=== PATIENT | male | born 1950 | race Caucasian/White ===

== ENCOUNTER 2016-07-30 11:29 | Emergency (ER) | payer OTHER ==
--- NOTE | 2016-07-30 13:02 | DIAGNOSTIC IMAGING REPORT ---
PROCEDURE: XR CHEST 2 VIEW INDICATION: SHORTNESS OF BREATH TECHNIQUE: PA and lateral views. COMPARISON: None available FINDINGS: Right paratracheal and hilar mass. There is collapse of the right lower lobe. There is a right pleural effusion. The heart size is normal. The left lung is clear. IMPRESSION: 1. Right paratracheal and hilar mass with pleural effusion and right lower lobe collapse.
--- NOTE | 2016-07-30 14:31 | ED ORDER SUMMARY ---
..... Patient: GUERDA GONZALEZ OrderSheet [facility] VisitID: [id number] [address] [place] [address] 66y, M Registration Date/Time: 07/30/2016 ORDER SHEET Weight: 54.8 kg (stated) Allergies: Antidepresants GENERAL ORDERS: Chest 2V Urgent (11:07/30/2016 PHutchinson DO) (Ack 11:48 RKaruga) (16:24 MCampbell) Torch Shearer (Continuous) (:07/30/2016 PHutchinson DO) (11:51 LWhalen R.N.) UA-Culture if indicated Urgent (:07/30/2016 PHutchinson DO) (Ack 11:48 RKaruga) (15:14 LWhalen R.N.) Cardiac Panel Stat (:07/30/2016 PHutchinson DO) (Ack 11:48 RKaruga) (12:40 LSullivan R.N.) BNP Urgent (:07/30/2016 PHutchinson DO) (Ack 11:48 RKaruga) (12:40 LSullivan R.N.) D-Dimer Urgent (:07/30/2016 PHutchinson DO) (Ack 11:48 RKaruga) (12:40 LSullivan R.N.) Amylase Urgent (11:07/30/2016 PHutchinson DO) (Ack 11:48 RKaruga) (12:40 LSullivan R.N.) Lipase Urgent (11:07/30/2016 PHutchinson DO) (Ack 11:48 RKaruga) (12:40 LSullivan R.N.) TSH Urgent (:07/30/2016 PHutchinson DO) (Ack 11:48 RKaruga) (12:40 LSullivan R.N.) Urine Drug Screen Urgent (:07/30/2016 PHutchinson DO) (Ack 11:48 RKaruga) (15:14 LWhalen R.N.) Pulse oximeter (:07/30/2016 PHutchinson DO) (11:51 LWhalen R.N.) EKG - ER Stat (11:43 07/30/2016 [facility] DO) (11:51 LWhalen R.N.) Vitals (11:43 07/30/2016 [facility] DO) (11:51 LWhalen R.N.) [facility]) (11:56 07/30/2016 [facility]) ([facility] 12[facility] (19:35 IJurca ER Tech1) MEDICATION ORDERS: Aspirin PO 325 mg (NOW) (11:43 07/30/2016 [facility] DO) (11:53 LWhalen R.N.) Lovenox Subcut 60 mg (HIGH ALERT MEDICATION, NOW) (14:50 07/30/2016 [facility]) (15:13 LWhalen R.N.) IV FLUIDS: IV NS : initial bolus 250 mL (1000 mL/hr), then 250 mL/hr for X3 (NOW) (11:43 07/30/2016 [facility]) (11:55 LWhalen R.N.) Ativan IV 0.5 mg (NOW) (15:05 07/30/2016 [facility]) (15:13 LWhalen R.N.) Ceftriaxone IV 1 gm/50mL (NOW) (15:48 07/30/2016 [facility]) (16:12 LWhalen R.N.) IV NS with Normal Saline 1 Liter: initial bolus 1000 mL (1000 mL/hr), then 1000 mL/hr for X1 (NOW) (15:50 07/30/2016 [facility]) (Ack 16:13 LWhalen R.N.) (20:49 DDavis R.N.) ORDER SHEET NOTES: [Electronically signed by Barry Bardales R.N. (21:08 07/30/2016)] [Electronically signed by Fredi Brandt DO (13:12 07/31/2016)] [Electronically locked/signed by Barry Bardales R.N. (21:08 07/30/2016)]
--- NOTE | 2016-07-30 14:31 | ED NURSING NOTES ---
Clinical Report - Nurses [facility] [address] [place] [address] 07/30/2016 11:32 [id number] Triage time 11:37 Jul 30 2016. Acuity: LEVEL 3. Chief Complaint: CHEST PAIN. HAIDER COMA SCORE: [place] Coma Scale: 15- eyes open spontaneously (4); best verbal response- oriented x 4 (5); best motor response- obeys commands (6). --11:47 Marcos Main R.N. 11:37 07/30/16. BP: 124/80. HR: 125. RR: 18. O2 saturation: 100%. Temp: 98.1 F. Pain level now 5/10. --11:47 Marcos Main R.N. Weight: 54.8 kg stated. Height/Length: 66 inches Per Patient. BMI: 19.5. --11:44 Marcos Main R.N. Medications Gabapentin Oral. --11:40 Marcos Main R.N. Asprin. --11:55 Marcos Main R.N. Motrin Oral. --11:55 Marcos Main R.N. Tylenol PM Extra Strength Oral. --11:56 Marcos Main R.N. Allergies Antidepresants . --11:40 Marcos Main R.N. History Arrived by private vehicle. Historian: patient. Primary physician (Dr.John Allred [place]). ( Patient states has been having SOB and chest pain for a month. Has lost 40lbs in the past 7 months. Having abd pain.). He has had difficulty breathing and a cough. No sweating episodes or fever. PAST MEDICAL HX: Immunizations: up-to-date. SOCIAL HX: Former smoker. Occasional alcohol use. No drug use. ABUSE ASSESSMENT: Abuse history: reports abuse. Abuse assessment: (yes) The patient was asked "Do you feel safe in your home?". SELF HARM ASSESSMENT: A self harm assessment was performed. The patient answered "yes" to the question "Have you recently felt down, depressed, or hopeless?" and "no" to the question "Do you have thoughts of harming or killing yourself?". FALL RISK ASSESSMENT: Fall risk assessment completed. No fall risk identified. NUTRITIONAL RISK ASSESSMENT: The nutritional risk assessment revealed no deficiencies. FUNCTIONAL ASSESSMENT: Functional assessment: no impairments noted. LEARNING NEEDS ASSESSMENT: The learning needs assessment revealed no barriers. SKIN INTEGRITY ASSESSMENT: Skin integrity risk assessment completed. No skin integrity risk identified. --11:47 Marcos Main R.N. PROBLEMS: Lung collapse . Emphysema. Osteoporosis. Fibromyalgia. --11:42 Marcos Main R.N. Interventions ID and allergy band on patient. --11:47 Marcos Main R.N. PHYSICAL ASSESSMENT Ambulatory to room. GENERAL / NEURO / PSYCH: Alert. Oriented X 4. Appears in no acute distress. HEENT: Mucous membranes are pink. RESPIRATORY: Respirations not labored. Chest nontender. Breath sounds within normal limits. GI / : The patient has had nausea. ( States last BM was three weeks ago.). EXTREMITIES: No lower extremity edema. SKIN: Skin is warm and dry. Normal skin turgor. Skin is non-tender. --11:49 Marcos Main R.N. ( Breath sounds absent or severely diminished on right lung, clear on left). --19:33 Barry Bardales R.N. ( patient calm and conversant). --19:34 Barry Bardales R.N. NURSING PROGRESS NOTES The initial plan of care for this patient includes an assessment with efforts to address patient positioning and appropriate ambient lighting; impairment of the cardiovascular and gastrointestinal system. threat monitoring analyst, pulse oximeter and NIBP monitor placed on patient. Patient gowned. Head of bed elevated (90). Reassurance given. Call light placed in reach. Side rails up x 1. Bed placed in lowest position. Brakes of bed on. --11:50 Marcos Main R.N. 11:50 07/30/2016 Site #1 started via IV in the left forearm with an 20g angiocath, with aseptic technique and good blood return; one attempt. Saline lock flushed with 10 mL saline. --11:50 Marcos Main R.N. 11:53 07/30/2016 Aspirin PO Capsules 325 mg given. Allergies verified and confirmed 5 rights. --11:53 Marcos Main R.N. 11:55 07/30/2016 Started bag #1 1000 mL IV Fluids IV NS (Saline); at 1000 mL/hr over 1 hour(s) via site #1 via dial-a-flow. Allergies verified and confirmed 5 rights. IV patency established. IV site checked: no pain, redness, or swelling. IV flushed thoroughly pre- and post-medication administration. --11:55 Marcos Main R.N. 12:15 07/30/2016 IV Fluids IV NS via IV site #1 Rate Changed: bag #1 decreased to 250 mL/hr via IV pump. IV patency established. IV site checked: no pain, redness, or swelling. IV flushed thoroughly. Confirmed 5 Rights. --12:43 Alla Walden R.N. 12:27 07/30/2016 Site #1 removed. Catheter intact. Bandage applied (IV site pulled out during CT.). --12:42 Alla Walden R.N. 12:42 07/30/2016 Site #1 relocated to the right antecubital space with an 20g angiocath, with aseptic technique and good blood return; one attempt. Blood drawn: rainbow set. Labeled in the presence of the patient and sent to the lab. --12:42 Alla Walden R.N. correction to prior entry - 12:27 Pt was in x ray, not CT. --12:44 Alla Walden R.N. ( [facility]. Multiple messages left for the [place] clinic [facility] to make a clinic appointment but Messages have not been replied. [facility] reported that Mr. Gonzalez has a product communications manager Ms. Adriana Hernandez but the voicemail message on her phone stated she would not be back until August 03. ER doctor notified.). --13:02 Nel Velasquez EKG time: (11:59 AM). EKG was performed by a tech and shown to the ED physician. --13:16 Rodrick Calderon 14:58 07/30/2016 Lovenox (Enoxaparin Sodium) Subcutaneous 60 mg given. Given in the left abdomen. Allergies verified and confirmed 5 rights. --15:13 Marcos Main R.N. 15:13 07/30/2016 Ativan (LORazepam) IVP 0.5 mg given over 1 minute(s) via site #1. Allergies verified, confirmed 5 rights and sedative warning given to the patient. IV patency established. IV site checked: no pain, redness, or swelling. IV flushed thoroughly pre- and post-medication administration. --15:13 Marcos Main R.N. 15:14 07/30/2016 Started bag #1 1000 mL IV Fluids IV NS (Saline); at 250 mL/hr over 4 hour(s) via site #1 via IV pump. Allergies verified and confirmed 5 rights. IV patency established. IV site checked: no pain, redness, or swelling. IV flushed thoroughly pre- and post-medication administration. --15:14 Marcos Main R.N. 15:14 07/30/2016 IV Fluids IV NS Discontinued: bag #2 infused. Total amount infused: 900 mL. IV patency established. IV site checked: no pain, redness, or swelling. IV flushed thoroughly. --15:14 Marcos Main R.N. 14:45 07/30/16. BP: 112/80. HR: 127. RR: 28. O2 saturation: 98% on room air. 14:07/30/16. BP: 109/71. HR: 120. RR: 24. O2 saturation: 98% on room air. 13:45 07/30/16. BP: 99/79. HR: 118. RR: 21. O2 saturation: 98% on room air. 13:07/30/16. BP: 101/70. HR: 122. RR: 24. O2 saturation: 98% on room air. 12:45 07/30/16. BP: 116/69. HR: 124. RR: 25. O2 saturation: 98%. 12:00 07/30/16. BP: 114/72. HR: 121. RR: 20. O2 saturation: 99%. 11:45 07/30/16. BP: 112/78. HR: 127. RR: 21. O2 saturation: 99% on room air. --15:23 Marcos Main R.N. 16:12 07/30/2016 Started 1 gm of Ceftriaxone IVPB in bag #1 100 mL; at 150 mL/hr over 1 hour(s) via site #1 via IV pump. Allergies verified and confirmed 5 rights. IV patency established. IV site checked: no pain, redness, or swelling. IV flushed thoroughly pre- and post-medication administration. --16:12 Marcos Main R.N. 16:12 07/30/2016 Ativan (LORazepam) IVP 0.5 mg given over 2 minute(s) via site #1. Allergies verified, confirmed 5 rights and sedative warning given to the patient. IV patency established. IV site checked: no pain, redness, or swelling. IV flushed thoroughly pre- and post-medication administration. --16:12 Marcos Main R.N. 16:13 07/30/2016 IV Fluids IV NS via IV site #1 Rate Changed: bag #3 increased to 1000 mL/hr via IV pump. IV patency established. IV site checked: no pain, redness, or swelling. IV flushed thoroughly. Confirmed 5 Rights. --16:13 Marcos Main R.N. ( Report given to Dion LUNA charge at the [place] for expected transport at 1800.). --17:18 Marcos Main R.N. 18:45 07/30/16. BP: 94/78. HR: 98. RR: 24. O2 saturation: 98%. 17:45 07/30/16. BP: 97/65. HR: 118. RR: 22. O2 saturation: 99%. Temp: 98.4 F. 16:45 07/30/16. BP: 109/69. HR: 116. RR: 23. O2 saturation: 98%. 15:45 07/30/16. BP: 84/71. HR: 119. RR: 21. O2 saturation: 97%. 14:45 07/30/16. BP: 112/80. HR: 127. RR: 28. O2 saturation: 98% on room air. --18:55 Marcos Main R.N. ( Report received from Marcos Ford RN). --19:18 Barry Bardales R.N. threat monitoring analyst and pulse oximeter placed on patient. ( SInus Tach on monitor. alert and oriented. conversant,). --19:33 Barry Bardales R.N. 20:49 07/30/2016 Started bag #1 1000 mL IV Fluids IV NS (Saline); at 1000 mL/hr over 1 hour(s) via site #1. Allergies verified and confirmed 5 rights. IV patency established. IV site checked: no pain, redness, or swelling. IV flushed thoroughly pre- and post-medication administration. --20:49 Barry Bardales R.N. 20:59 07/30/2016 Site #[address] upon transfer; patent, no pain and no signs of infection or infiltration. Good blood return present. Flushed with saline; flushes easily. --20:59 Barry Bardales R.N. 20:59 07/30/2016 IV Fluids IV NS Continued: upon transfer at the rate of 1000 mL/hr. 900 mL remaining. IV patency established. IV site checked: no pain, redness, or swelling. IV flushed thoroughly. --21:00 Barry Bardales R.N. DISPOSITION / DISCHARGE Departure time: 2058. Learning barriers present. Discharge instructions provided and reviewed with the patient. Treatments reviewed. Patient verbalized understanding. Transferred. Summary of care provided to transport team, EMS and transfer facility ([facility] 2058). Transported via ambulance by nurse, EMS and transport team with monitor, IV and emergency medications. Report was given to a nurse in person. Report included patient's care, treatment, medications, reviewed medication reconcilliation, and condition (including any recent changes or anticipated changes). All questions were answered. Report was acknowledged and care was transferred. ( Report given to Navneet Aburto RN with [facility] transport). --21:06 aBrry Bardales R.N. 20:59 07/30/16. RR: 24. Additional comments: See recorded vitals for d/c vitals. --21:07 Barry Bardales R.N. Locked/Released at 07/30/2016 21:08 by Barry Bardales R.N.
--- NOTE | 2016-07-30 14:31 | ED NURSING NOTES ---
Clinical Report - Nurses [facility] [address] [place] [address] 07/30/2016 11:32 [id number] Triage time 11:37 Jul 30 2016. Acuity: LEVEL 3. Chief Complaint: CHEST PAIN. HAIDER COMA SCORE: [place] Coma Scale: 15- eyes open spontaneously (4); best verbal response- oriented x 4 (5); best motor response- obeys commands (6). --11:47 Marcos Main R.N. 11:37 07/30/16. BP: 124/80. HR: 125. RR: 18. O2 saturation: 100%. Temp: 98.1 F. Pain level now 5/10. --11:47 Marcos Main R.N. Weight: 54.8 kg stated. Height/Length: 66 inches Per Patient. BMI: 19.5. --11:44 Marcos Main R.N. Medications Gabapentin Oral. --11:40 Marcos Main R.N. Asprin. --11:55 Marcos Main R.N. Motrin Oral. --11:55 Macros Main R.N. Tylenol PM Extra Strength Oral. --11:56 Marcos Main R.N. Allergies Antidepresants . --11:40 Marcos Main R.N. History Arrived by private vehicle. Historian: patient. Primary physician (Dr.John Allred [place]). ( Patient states has been having SOB and chest pain for a month. Has lost 40lbs in the past 7 months. Having abd pain.). He has had difficulty breathing and a cough. No sweating episodes or fever. PAST MEDICAL HX: Immunizations: up-to-date. SOCIAL HX: Former smoker. Occasional alcohol use. No drug use. ABUSE ASSESSMENT: Abuse history: reports abuse. Abuse assessment: (yes) The patient was asked "Do you feel safe in your home?". SELF HARM ASSESSMENT: A self harm assessment was performed. The patient answered "yes" to the question "Have you recently felt down, depressed, or hopeless?" and "no" to the question "Do you have thoughts of harming or killing yourself?". FALL RISK ASSESSMENT: Fall risk assessment completed. No fall risk identified. NUTRITIONAL RISK ASSESSMENT: The nutritional risk assessment revealed no deficiencies. FUNCTIONAL ASSESSMENT: Functional assessment: no impairments noted. LEARNING NEEDS ASSESSMENT: The learning needs assessment revealed no barriers. SKIN INTEGRITY ASSESSMENT: Skin integrity risk assessment completed. No skin integrity risk identified. --11:47 Marcos Main R.N. PROBLEMS: Lung collapse . Emphysema. Osteoporosis. Fibromyalgia. --11:42 Marcos Main R.N. Interventions ID and allergy band on patient. --11:47 Marcos Main R.N. PHYSICAL ASSESSMENT Ambulatory to room. GENERAL / NEURO / PSYCH: Alert. Oriented X 4. Appears in no acute distress. HEENT: Mucous membranes are pink. RESPIRATORY: Respirations not labored. Chest nontender. Breath sounds within normal limits. GI / : The patient has had nausea. ( States last BM was three weeks ago.). EXTREMITIES: No lower extremity edema. SKIN: Skin is warm and dry. Normal skin turgor. Skin is non-tender. --11:49 Marcos Main R.N. ( Breath sounds absent or severely diminished on right lung, clear on left). --19:33 Barry Bardales R.N. ( patient calm and conversant). --19:34 Barry Bardales R.N. NURSING PROGRESS NOTES The initial plan of care for this patient includes an assessment with efforts to address patient positioning and appropriate ambient lighting; impairment of the cardiovascular and gastrointestinal system. quality assurance monitor final, pulse oximeter and NIBP monitor placed on patient. Patient gowned. Head of bed elevated (90). Reassurance given. Call light placed in reach. Side rails up x 1. Bed placed in lowest position. Brakes of bed on. --11:50 Marcos Main R.N. 11:50 07/30/2016 Site #1 started via IV in the left forearm with an 20g angiocath, with aseptic technique and good blood return; one attempt. Saline lock flushed with 10 mL saline. --11:50 Marcos Main R.N. 11:53 07/30/2016 Aspirin PO Capsules 325 mg given. Allergies verified and confirmed 5 rights. --11:53 Marcos Main R.N. 11:55 07/30/2016 Started bag #1 1000 mL IV Fluids IV NS (Saline); at 1000 mL/hr over 1 hour(s) via site #1 via dial-a-flow. Allergies verified and confirmed 5 rights. IV patency established. IV site checked: no pain, redness, or swelling. IV flushed thoroughly pre- and post-medication administration. --11:55 Marcos Main R.N. 12:15 07/30/2016 IV Fluids IV NS via IV site #1 Rate Changed: bag #1 decreased to 250 mL/hr via IV pump. IV patency established. IV site checked: no pain, redness, or swelling. IV flushed thoroughly. Confirmed 5 Rights. --12:43 Alla Walden R.N. 12:27 07/30/2016 Site #1 removed. Catheter intact. Bandage applied (IV site pulled out during CT.). --12:42 Alla Walden R.N. 12:42 07/30/2016 Site #1 relocated to the right antecubital space with an 20g angiocath, with aseptic technique and good blood return; one attempt. Blood drawn: rainbow set. Labeled in the presence of the patient and sent to the lab. --12:42 Alla Walden R.N. correction to prior entry - 12:27 Pt was in x ray, not CT. --12:44 Alla Walden R.N. ( [facility]. Multiple messages left for the [place] clinic [facility] to make a clinic appointment but Messages have not been replied. [facility] reported that Mr. Gonzalez has a national facilities manager Ms. Adriana Hernandez but the voicemail message on her phone stated she would not be back until August 03. ER doctor notified.). --13:02 Nel Velasquez EKG time: (11:59 AM). EKG was performed by a tech and shown to the ED physician. --13:16 Rodrick Calderon 14:58 07/30/2016 Lovenox (Enoxaparin Sodium) Subcutaneous 60 mg given. Given in the left abdomen. Allergies verified and confirmed 5 rights. --15:13 Marcos Main R.N. 15:13 07/30/2016 Ativan (LORazepam) IVP 0.5 mg given over 1 minute(s) via site #1. Allergies verified, confirmed 5 rights and sedative warning given to the patient. IV patency established. IV site checked: no pain, redness, or swelling. IV flushed thoroughly pre- and post-medication administration. --15:13 Marcos Main R.N. 15:14 07/30/2016 Started bag #1 1000 mL IV Fluids IV NS (Saline); at 250 mL/hr over 4 hour(s) via site #1 via IV pump. Allergies verified and confirmed 5 rights. IV patency established. IV site checked: no pain, redness, or swelling. IV flushed thoroughly pre- and post-medication administration. --15:14 Marcos Main R.N. 15:14 07/30/2016 IV Fluids IV NS Discontinued: bag #2 infused. Total amount infused: 900 mL. IV patency established. IV site checked: no pain, redness, or swelling. IV flushed thoroughly. --15:14 Marcos Main R.N. 14:45 07/30/16. BP: 112/80. HR: 127. RR: 28. O2 saturation: 98% on room air. 14:07/30/16. BP: 109/71. HR: 120. RR: 24. O2 saturation: 98% on room air. 13:45 07/30/16. BP: 99/79. HR: 118. RR: 21. O2 saturation: 98% on room air. 13:07/30/16. BP: 101/70. HR: 122. RR: 24. O2 saturation: 98% on room air. 12:45 07/30/16. BP: 116/69. HR: 124. RR: 25. O2 saturation: 98%. 12:00 07/30/16. BP: 114/72. HR: 121. RR: 20. O2 saturation: 99%. 11:45 07/30/16. BP: 112/78. HR: 127. RR: 21. O2 saturation: 99% on room air. --15:23 Marcos Main R.N. 16:12 07/30/2016 Started 1 gm of Ceftriaxone IVPB in bag #1 100 mL; at 150 mL/hr over 1 hour(s) via site #1 via IV pump. Allergies verified and confirmed 5 rights. IV patency established. IV site checked: no pain, redness, or swelling. IV flushed thoroughly pre- and post-medication administration. --16:12 Marcos Main R.N. 16:12 07/30/2016 Ativan (LORazepam) IVP 0.5 mg given over 2 minute(s) via site #1. Allergies verified, confirmed 5 rights and sedative warning given to the patient. IV patency established. IV site checked: no pain, redness, or swelling. IV flushed thoroughly pre- and post-medication administration. --16:12 Marcos Main R.N. 16:13 07/30/2016 IV Fluids IV NS via IV site #1 Rate Changed: bag #3 increased to 1000 mL/hr via IV pump. IV patency established. IV site checked: no pain, redness, or swelling. IV flushed thoroughly. Confirmed 5 Rights. --16:13 Marcos Main R.N. ( Report given to Dion LUNA charge at the [place] for expected transport at 1800.). --17:18 Marcos Main R.N. 18:45 07/30/16. BP: 94/78. HR: 98. RR: 24. O2 saturation: 98%. 17:45 07/30/16. BP: 97/65. HR: 118. RR: 22. O2 saturation: 99%. Temp: 98.4 F. 16:45 07/30/16. BP: 109/69. HR: 116. RR: 23. O2 saturation: 98%. 15:45 07/30/16. BP: 84/71. HR: 119. RR: 21. O2 saturation: 97%. 14:45 07/30/16. BP: 112/80. HR: 127. RR: 28. O2 saturation: 98% on room air. --18:55 Marcos Main R.N. ( Report received from Marcos Ford RN). --19:18 Barry Bardales R.N. quality assurance monitor final and pulse oximeter placed on patient. ( SInus Tach on monitor. alert and oriented. conversant,). --19:33 Barry Bardales R.N. 20:49 07/30/2016 Started bag #1 1000 mL IV Fluids IV NS (Saline); at 1000 mL/hr over 1 hour(s) via site #1. Allergies verified and confirmed 5 rights. IV patency established. IV site checked: no pain, redness, or swelling. IV flushed thoroughly pre- and post-medication administration. --20:49 Barry Bardales R.N. 20:59 07/30/2016 Site #[address] upon transfer; patent, no pain and no signs of infection or infiltration. Good blood return present. Flushed with saline; flushes easily. --20:59 Barry Bardales R.N. 20:59 07/30/2016 IV Fluids IV NS Continued: upon transfer at the rate of 1000 mL/hr. 900 mL remaining. IV patency established. IV site checked: no pain, redness, or swelling. IV flushed thoroughly. --21:00 Barry Bardales R.N. DISPOSITION / DISCHARGE Departure time: 2058. Learning barriers present. Discharge instructions provided and reviewed with the patient. Treatments reviewed. Patient verbalized understanding. Transferred. Summary of care provided to transport team, EMS and transfer facility ([facility] 2058). Transported via ambulance by nurse, EMS and transport team with monitor, IV and emergency medications. Report was given to a nurse in person. Report included patient's care, treatment, medications, reviewed medication reconcilliation, and condition (including any recent changes or anticipated changes). All questions were answered. Report was acknowledged and care was transferred. ( Report given to Navneet Aburto RN with [facility] transport). --21:06 Barry Bardales R.N. 20:59 07/30/16. RR: 24. Additional comments: See recorded vitals for d/c vitals. --21:07 Barry Bardales R.N. Locked/Released at 07/30/2016 21:08 by Barry Bardales R.N.
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
--- NOTE | 2016-07-30 14:31 | ED ORDER SUMMARY ---
..... Patient: GUERDA GONZALEZ OrderSheet [facility] VisitID: [id number] [address] [place] [address] 66y, M Registration Date/Time: 07/30/2016 ORDER SHEET Weight: 54.8 kg (stated) Allergies: Antidepresants GENERAL ORDERS: Chest 2V Urgent (11:07/30/2016 PHutchinson DO) (Ack 11:48 RKaruga) (16:24 MCampbell) Unleavened Dough Mixer (Continuous) (:07/30/2016 PHutchinson DO) (11:51 LWhalen R.N.) UA-Culture if indicated Urgent (:07/30/2016 PHutchinson DO) (Ack 11:48 RKaruga) (15:14 LWhalen R.N.) Cardiac Panel Stat (:07/30/2016 PHutchinson DO) (Ack 11:48 RKaruga) (12:40 LSullivan R.N.) BNP Urgent (:07/30/2016 PHutchinson DO) (Ack 11:48 RKaruga) (12:40 LSullivan R.N.) D-Dimer Urgent (:07/30/2016 PHutchinson DO) (Ack 11:48 RKaruga) (12:40 LSullivan R.N.) Amylase Urgent (11:07/30/2016 PHutchinson DO) (Ack 11:48 RKaruga) (12:40 LSullivan R.N.) Lipase Urgent (11:07/30/2016 PHutchinson DO) (Ack 11:48 RKaruga) (12:40 LSullivan R.N.) TSH Urgent (:07/30/2016 PHutchinson DO) (Ack 11:48 RKaruga) (12:40 LSullivan R.N.) Urine Drug Screen Urgent (:07/30/2016 PHutchinson DO) (Ack 11:48 RKaruga) (15:14 LWhalen R.N.) Pulse oximeter (:07/30/2016 PHutchinson DO) (11:51 LWhalen R.N.) EKG - ER Stat (11:43 07/30/2016 [facility] DO) (11:51 LWhalen R.N.) Vitals (11:43 07/30/2016 [facility] DO) (11:51 LWhalen R.N.) [facility] - and [facility]/u appotint[facility]) (11:56 07/30/2016 [facility]) [facility] 12[facility] (19:35 IJurca ER Tech1) MEDICATION ORDERS: Aspirin PO 325 mg (NOW) (11:43 07/30/2016 [facility] DO) (11:53 LWhalen R.N.) Lovenox Subcut 60 mg (HIGH ALERT MEDICATION, NOW) (14:50 07/30/2016 [facility]) (15:13 LWhalen R.N.) IV FLUIDS: IV NS : initial bolus 250 mL (1000 mL/hr), then 250 mL/hr for X3 (NOW) (11:43 07/30/2016 [facility]) (11:55 LWhalen R.N.) Ativan IV 0.5 mg (NOW) (15:05 07/30/2016 [facility]) (15:13 LWhalen R.N.) Ceftriaxone IV 1 gm/50mL (NOW) (15:48 07/30/2016 [facility]) (16:12 LWhalen R.N.) IV NS with Normal Saline 1 Liter: initial bolus 1000 mL (1000 mL/hr), then 1000 mL/hr for X1 (NOW) (15:50 07/30/2016 [facility]) (Ack 16:13 LWhalen R.N.) (20:49 DDavis R.N.) ORDER SHEET NOTES: [Electronically signed by Barry Bardales R.N. (21:08 07/30/2016)] [Electronically signed by Fredi Brandt DO (13:12 07/31/2016)] [Electronically locked/signed by Barry Bardales R.N. (21:08 07/30/2016)]
--- NOTE | 2016-07-31 13:13 | ED MAR SUMMARY ---
..... Medication Administration Record [facility] [address] [place] [address] Patient: GUERDA GONZALEZ Visit ID: [id number] 66y, M Weight: 54.8 kg Height/Length: 66 in BMI: 19.5 ALLERGIES: Antidepresants Given 11:53 07/30/2016 Marcos Main R.N. Medication Administered: ASPIRIN [PO], Dose: 325 mg Capsules PO. Medication Ordered: Aspirin PO 325 mg (NOW). Start 11:55 07/30/2016 Marcos Main R.N., Stop 15:14 07/30/2016 Marcos Main R.N. Medication Administered: IV NS (SALINE), Dose: IV Fluids over 1 hour(s), Rate: 1000 mL/hr, Dispensed: 1000 mL bag, Site: #1 left forearm. Medication Ordered: IV NS : initial bolus 250 mL (1000 mL/hr), then 250 mL/hr for X3 (NOW). Given 14:58 07/30/2016 Marcos Main R.N. Medication Administered: LOVENOX [SUBCUTANEOUS] (ENOXAPARIN SODIUM), Dose: 60 mg Subcutaneous. Medication Ordered: Lovenox Subcut 60 mg (HIGH ALERT MEDICATION, NOW). Given 15:13 07/30/2016 Marcos Main R.N. Medication Administered: ATIVAN [IVP] (LORAZEPAM), Dose: 0.5 mg IVP over 1 minute(s), Site: #1 right AC. Medication Ordered: Ativan IV 0.5 mg (NOW). Start 15:14 07/30/2016 Marcos Main R.N. Medication Administered: IV NS (SALINE), Dose: IV Fluids over 4 hour(s), Rate: 250 mL/hr, Dispensed: 1000 mL bag, Site: #1 right AC. Medication Ordered: IV NS : initial bolus 250 mL (1000 mL/hr), then 250 mL/hr for X3 (NOW). Given 16:12 07/30/2016 Marcos Main R.N. Medication Administered: ATIVAN [IVP] (LORAZEPAM), Dose: 0.5 mg IVP over 2 minute(s), Site: #1 right AC. Medication Ordered: Ativan IV 0.5 mg (NOW). Start 16:12 07/30/2016 Marcos Main R.N. Medication Administered: CEFTRIAXONE [IVPB], Dose: 1 gm IVPB over 1 hour(s), Rate: 150 mL/hr, Dispensed: 100 mL bag, Site: #1 right AC. Medication Ordered: Ceftriaxone IV 1 gm/50mL (NOW). Start 20:49 07/30/2016 Barry Bardales RSarabjitNSarabjit, Continued Upon Transfer 20:59 07/30/2016 Barry Bardales R.N. Medication Administered: IV NS (SALINE), Dose: IV Fluids over 1 hour(s), Rate: 1000 mL/hr, Dispensed: 1000 mL bag, Site: #1 right AC. Medication Ordered: IV NS with Normal Saline 1 Liter: initial bolus 1000 mL (1000 mL/hr), then 1000 mL/hr for X1 (NOW).
--- NOTE | 2016-07-31 13:13 | ED DISCHARGE INSTRUCTIONS ---
Patient: GUERDA GONZALEZ General Instructions [facility] VisitID: [id number] [address] [place] [address] 66y, M Registration Date/Time: 07/30/2016 Medium-sized right pleural effusion associated with pleurisy and malignancy (with large paratracheal mass). Acute idiopathic pancreatitis. Mild chronic anemia associated with chronic disease. Mild hyponatremia. Prerenal azotemia Elevated d-dimer - likely secondary to malignancy. (Electronically signed by Fredi Brandt DO 07/31/2016 13:12)
--- NOTE | 2016-07-31 13:13 | ED MED RECONCILIATION SUMMARY ---
Patient: GUERDA GONZALEZ Medication Reconciliation Report [facility] VisitID: [id number] [address] [place] [address] 66y, M Registration Date/Time: 07/30/2016 Weight: 54.8 kg Height/Length: 66 in. BMI: 19.5 ALLERGIES: Antidepresants The patient's Home Medications are listed below: THE FOLLOWING MEDICATIONS NEED TO BE RECONCILED: Asprin Gabapentin Oral Motrin Oral Tylenol PM Extra Strength Oral The source(s) of the original Home Medication information: Not obtained. The following Medications were given to the patient in the Emergency Department: Aspirin [PO] PO 325 mg, administered: 07/30/2016 11:53:00 AM IV NS IV Fluids bolus 0, then 1000 mL/hr, administered: 07/30/2016 11:55:00 AM Lovenox [Subcutaneous] Subcutaneous 60 mg, administered: 07/30/2016 2:58:00 PM Ativan [IVP] IVP 0.5 mg, administered: 07/30/2016 3:13:00 PM IV NS IV Fluids bolus 0, then 250 mL/hr, administered: 07/30/2016 3:14:00 PM Ceftriaxone [IVPB] IVPB bolus 0, then 1 gm 150 mL/hr, administered: 07/30/2016 4:12:00 PM Ativan [IVP] IVP 0.5 mg, administered: 07/30/2016 4:12:00 PM IV NS IV Fluids bolus 0, then 1000 mL/hr, administered: 07/30/2016 8:49:00 PM The following Medications were prescribed to the patient: None.
--- NOTE | 2016-07-31 13:13 | ED MAR SUMMARY ---
..... Medication Administration Record [facility] [address] [facility] [place] [address] Patient: GUERDA GONZALEZ Visit ID: [id number] 66y, M Weight: 54.8 kg Height/Length: 66 in BMI: 19.5 ALLERGIES: Antidepresants Given 11:53 07/30/2016 Marcos Main R.N. Medication Administered: ASPIRIN [PO], Dose: 325 mg Capsules PO. Medication Ordered: Aspirin PO 325 mg (NOW). Start 11:55 07/30/2016 Marcos Main R.N., Stop 15:14 07/30/2016 Marcos Main R.N. Medication Administered: IV NS (SALINE), Dose: IV Fluids over 1 hour(s), Rate: 1000 mL/hr, Dispensed: 1000 mL bag, Site: #1 left forearm. Medication Ordered: IV NS : initial bolus 250 mL (1000 mL/hr), then 250 mL/hr for X3 (NOW). Given 14:58 07/30/2016 Marcos Main R.N. Medication Administered: LOVENOX [SUBCUTANEOUS] (ENOXAPARIN SODIUM), Dose: 60 mg Subcutaneous. Medication Ordered: Lovenox Subcut 60 mg (HIGH ALERT MEDICATION, NOW). Given 15:13 07/30/2016 Marcos Main R.N. Medication Administered: ATIVAN [IVP] (LORAZEPAM), Dose: 0.5 mg IVP over 1 minute(s), Site: #1 right AC. Medication Ordered: Ativan IV 0.5 mg (NOW). Start 15:14 07/30/2016 Marcos Main R.N. Medication Administered: IV NS (SALINE), Dose: IV Fluids over 4 hour(s), Rate: 250 mL/hr, Dispensed: 1000 mL bag, Site: #1 right AC. Medication Ordered: IV NS : initial bolus 250 mL (1000 mL/hr), then 250 mL/hr for X3 (NOW). Given 16:12 07/30/2016 Marcos Main R.N. Medication Administered: ATIVAN [IVP] (LORAZEPAM), Dose: 0.5 mg IVP over 2 minute(s), Site: #1 right AC. Medication Ordered: Ativan IV 0.5 mg (NOW). Start 16:12 07/30/2016 Marcos Main R.N. Medication Administered: CEFTRIAXONE [IVPB], Dose: 1 gm IVPB over 1 hour(s), Rate: 150 mL/hr, Dispensed: 100 mL bag, Site: #1 right AC. Medication Ordered: Ceftriaxone IV 1 gm/50mL (NOW). Start 20:49 07/30/2016 Barry Bardales RSarabjitNSarabjit, Continued Upon Transfer 20:59 07/30/2016 Barry Bardales R.N. Medication Administered: IV NS (SALINE), Dose: IV Fluids over 1 hour(s), Rate: 1000 mL/hr, Dispensed: 1000 mL bag, Site: #1 right AC. Medication Ordered: IV NS with Normal Saline 1 Liter: initial bolus 1000 mL (1000 mL/hr), then 1000 mL/hr for X1 (NOW).
--- NOTE | 2016-07-31 13:13 | ED MED RECONCILIATION SUMMARY ---
Patient: GUERDA GONZALEZ Medication Reconciliation Report [facility] VisitID: [id number] [address] [place] [address] 66y, M Registration Date/Time: 07/30/2016 Weight: 54.8 kg Height/Length: 66 in. BMI: 19.5 ALLERGIES: Antidepresants The patient's Home Medications are listed below: THE FOLLOWING MEDICATIONS NEED TO BE RECONCILED: Asprin Gabapentin Oral Motrin Oral Tylenol PM Extra Strength Oral The source(s) of the original Home Medication information: Not obtained. The following Medications were given to the patient in the Emergency Department: Aspirin [PO] PO 325 mg, administered: 07/30/2016 11:53:00 AM IV NS IV Fluids bolus 0, then 1000 mL/hr, administered: 07/30/2016 11:55:00 AM Lovenox [Subcutaneous] Subcutaneous 60 mg, administered: 07/30/2016 2:58:00 PM Ativan [IVP] IVP 0.5 mg, administered: 07/30/2016 3:13:00 PM IV NS IV Fluids bolus 0, then 250 mL/hr, administered: 07/30/2016 3:14:00 PM Ceftriaxone [IVPB] IVPB bolus 0, then 1 gm 150 mL/hr, administered: 07/30/2016 4:12:00 PM Ativan [IVP] IVP 0.5 mg, administered: 07/30/2016 4:12:00 PM IV NS IV Fluids bolus 0, then 1000 mL/hr, administered: 07/30/2016 8:49:00 PM The following Medications were prescribed to the patient: None.
--- NOTE | 2016-07-31 13:13 | ED DISCHARGE INSTRUCTIONS ---
Patient: GUERDA GONZALEZ General Instructions [facility] VisitID: [id number] [address] [place] [address] 66y, M Registration Date/Time: 07/30/2016 Medium-sized right pleural effusion associated with pleurisy and malignancy (with large paratracheal mass). Acute idiopathic pancreatitis. Mild chronic anemia associated with chronic disease. Mild hyponatremia. Prerenal azotemia Elevated d-dimer - likely secondary to malignancy. (Electronically signed by Fredi Brandt DO 07/31/2016 13:12)
== END 2016-07-30 20:59 | disposition short-term general hospital (02) ==
LOC: ED SRH 11:29
DX: C33 Malignant neoplasm of trachea (principal); J90 Pleural effusion, not elsewhere classified; K85.00 Idiopathic acute pancreatitis without necrosis or infection; D63.8 Anemia in other chronic diseases classified elsewhere; E87.1 Hypo-osmolality and hyponatremia; Z87.891 Personal history of nicotine dependence; Z79.82 Long term (current) use of aspirin; Z88.8 Allergy status to other drugs, medicaments and biological substances
CPT/HCPCS: 90004; 90100; 90616; 91320; 91556; 92235; 92530; 92610; 92720; 92760; 92761; 92762; 92763; 92764; 92765; 92766; 92767; 93140; 95059

== ENCOUNTER 2016-08-12 12:50 | Emergency (ER) | payer OTHER ==
--- NOTE | 2016-08-12 14:57 | DIAGNOSTIC IMAGING REPORT ---
PROCEDURE: XR CHEST 2 VIEW INDICATION: SHORTNESS OF BREATH TECHNIQUE: Two views. COMPARISON: 07/30/2016 FINDINGS: The left cardiac border suggests a normal heart size. The right cardiac border is obscured. There is a right hilar and right paratracheal soft tissue mass. Dense opacity involving the right lower lung with interval development of multiple air-fluid levels. There has been further atelectasis and/or effusion now involving the right upper lobe with a small amount of remaining aerated lung anteriorly. The left lung is clear. No central venous congestion. Multiple tiny radiodense foci project over the posterior thorax, a few might be an lung parenchyma. Osseous structures demonstrate compression fractures in the mid- thoracic and lower thoracic spine, and mild diffuse demineralization. IMPRESSION: 1. Known right hilar/right paratracheal lung neoplasm resulting in progressive postobstructive atelectasis/pneumonia with probable worsening effusion. 2. Interval development of air fluid levels in the right lower lobe suspicious for pulmonary parenchymal abscess. Chest CT with contrast is recommended. 3. At least two thoracic compression fractures visible.
--- NOTE | 2016-08-12 18:43 | ED ORDER SUMMARY ---
..... Patient: GUERDA GONZALEZ OrderSheet [facility] VisitID: [id number] [place] [address] 66y, M Registration Date/Time: 08/12/2016 ORDER SHEET Weight: 51.2 kg (stated) Allergies: Antidepresants GENERAL ORDERS: Chest 2V Urgent (12:57 08/12/2016 Maria L Silva) (Ack 12:59 CAMoerner) (14:33 RKgracy) [employer] (Continuous) (Respiratory Distress) (12:57 08/12/2016 Maria L Silva) (Ack 12:59 CAMoerner) (13:15 JESSEEassan R.N.) Pulse oximeter (12:57 08/12/2016 Maria L Silva) (Ack 12:59 CAMoercaitlyn) (13:15 Ria R.N.) RT Evaluation Stat (12:57 08/12/2016 Maria L Silva) (Ack 12:59 CAMoerner) (12:59 CAMoerner) CBC w Diff Urgent (13:30 08/12/2016 Maria L Silva) (Ack 13:31 Gurmeet) (14:15 JESSEEassan R.N.) CMP Urgent (13:30 08/12/2016 Maria L Silva) (Ack 13:31 Gurmeet) (14:15 Sayran R.N.) Lactate, Serum Urgent (13:30 08/12/2016 Maria L Silva) (Ack 13:31 Gurmeet) (14:15 Sayran R.N.) MEDICATION ORDERS: IV FLUIDS: IV NS : initial bolus 500 mL (1000 mL/hr), then none - for X1 (NOW) (13:29 08/12/2016 Maria L Silva) (14:16 Ria R.N.) Morphine IV 4 mg (HIGH ALERT MEDICATION, NOW) (13:30 08/12/2016 Maria L Silva) (14:16 Ria R.N.) Vancomycin IV 1 gm/200mL (NOW) (15:14 08/12/2016 Maria L Silva) (15:24 Ria R.N.) Zosyn IV 4.5 gm/100mL (NOW) (15:14 08/12/2016 Maria L Silva) (Cancelled: Other17:47 Ria SuarezN.) Cefepime IV 2 gm/50mL (NOW) (15:14 08/12/2016 Maria L Silva) (17:23 Ria Diehl.N.) Morphine IV 4 mg (HIGH ALERT MEDICATION, NOW) (17:25 08/12/2016 Maria L Silva) (17:28 Ria Diehl.N.) Levofloxacin IV 750 mg/150 mL (NOW) (17:55 08/12/2016 Ria Diehl.N. verbal order read back to Maria L Silva) (17:56 Ria R.N.) ORDER SHEET NOTES: [Electronically signed by Layne Pritchett R.N. (20:31 08/12/2016)] [Electronically signed by Parrish Cote Dr. (20:33 08/12/2016)] [Electronically locked/signed by Layne Pritchett R.N. (20:31 08/12/2016)]
--- NOTE | 2016-08-12 18:43 | ED ORDER SUMMARY ---
..... Patient: GUERDA GONZALEZ OrderSheet [facility] VisitID: [id number] [place] [address] 66y, M Registration Date/Time: 08/12/2016 ORDER SHEET Weight: 51.2 kg (stated) Allergies: Antidepresants GENERAL ORDERS: Chest 2V Urgent (12:57 08/12/2016 Maria L Silva) (Ack 12:59 CAMoerner) (14:33 RKgracy) Retail Security Professional (Continuous) (Respiratory Distress) (12:57 08/12/2016 Maria L Silva) (Ack 12:59 CAMoerner) (13:15 JESSEEassan R.N.) Pulse oximeter (12:57 08/12/2016 Maria L Silva) (Ack 12:59 CAMoercaitlyn) (13:15 Ria R.N.) RT Evaluation Stat (12:57 08/12/2016 Maria L Silva) (Ack 12:59 CAMoerner) (12:59 CAMoerner) CBC w Diff Urgent (13:30 08/12/2016 Maria L Silva) (Ack 13:31 Gurmeet) (14:15 JESSEEassan R.N.) CMP Urgent (13:30 08/12/2016 Maria L Silva) (Ack 13:31 Gurmeet) (14:15 Sayran R.N.) Lactate, Serum Urgent (13:30 08/12/2016 Maria L Silva) (Ack 13:31 Gurmeet) (14:15 Sayran R.N.) MEDICATION ORDERS: IV FLUIDS: IV NS : initial bolus 500 mL (1000 mL/hr), then none - for X1 (NOW) (13:29 08/12/2016 Maria L Silva) (14:16 Ria R.N.) Morphine IV 4 mg (HIGH ALERT MEDICATION, NOW) (13:30 08/12/2016 Maria L Silva) (14:16 Ria R.N.) Vancomycin IV 1 gm/200mL (NOW) (15:14 08/12/2016 Maria L Silva) (15:24 Ria R.N.) Zosyn IV 4.5 gm/100mL (NOW) (15:14 08/12/2016 Maria L Silva) (Cancelled: Other17:47 Ria SuarezN.) Cefepime IV 2 gm/50mL (NOW) (15:14 08/12/2016 Maria L Silva) (17:23 Ria Diehl.N.) Morphine IV 4 mg (HIGH ALERT MEDICATION, NOW) (17:25 08/12/2016 Maria L Silva) (17:28 Ria Diehl.N.) Levofloxacin IV 750 mg/150 mL (NOW) (17:55 08/12/2016 Ria Diehl.N. verbal order read back to Maria L Silva) (17:56 Ria R.N.) ORDER SHEET NOTES: [Electronically signed by Layne Pritchett R.N. (20:31 08/12/2016)] [Electronically signed by Parrish Cote Dr. (20:33 08/12/2016)] [Electronically locked/signed by Layne Pritchett R.N. (20:31 08/12/2016)]
--- NOTE | 2016-08-12 18:43 | ED CLINICAL REPORT ---
Clinical Report - Physicians/Mid Levels [facility] [address] [place] [address] 08/12/2016 12:51 Patient: GUERDA GONZALEZ Arrived- By private vehicle. Historian- patient and family. HISTORY OF PRESENT ILLNESS Chief Complaint: DYSPNEA. This started past week and is still present (worsening). It was gradual in onset and has been constant and waxing/waning but is not gone now. The dyspnea is worsened by exertion, is improved by rest and is improved with oxygen. The patient has had a cough. No chest pain or discomfort or calf pain. (patient reports history of lung cancer and recent admission to the CT. Patient reports that there cannot put lungs [place] however patient declined at that time. Patient reports he was discharged proximally 2 days ago and left AGAINST MEDICAL ADVICE. Patient reports now that he had thought about it, he would like to have the stents placed. Patient initially had refused all interventions at this time including IV, chest x-ray, laboratory studies. Was able talk to patient in regards to these evaluation studies and was eventually agreeable to them.). Similar symptoms previously: Recent medical care: The patient was seen recently and hospitalized. REVIEW OF SYSTEMS All systems otherwise negative, except as recorded above. PAST HISTORY See nurses notes. SOCIAL HISTORY Former smoker. No alcohol use or drug use. No recent travel. Is a local resident. ADDITIONAL NOTES The nursing notes have been reviewed. PHYSICAL EXAM Vital Signs: 08/12/2016 12:54 BP: 126/77. HR: 131. RR: 24. O2 saturation: 100%. Temp: 98.2 F. Pain level now: 6/10. Blood pressure normal. Oxygen saturation normal. Appearance: Alert. No acute distress. (thin appearing, non-toxic). Eyes: Pupils equal, round and reactive to light. Eyes normal inspection. ENT: Ears normal. Nose normal. Pharynx normal. Uvula midline. Neck: Normal inspection. No jugular venous distention. Neck supple. CVS: Tachycardia. Heart sounds normal. Pulses normal. Respiratory: Mild respiratory distress with accessory muscle use. Moderately decreased air movement in the right lung. No wheezes, stridor, rales or rhonchi. Abdomen: Soft and nontender. No organomegaly. Back: Normal inspection. Skin: Skin warm and dry. Normal skin color. No rash. Normal skin turgor. Extremities: Extremities exhibit normal ROM. No lower extremity edema. LABS, X-RAYS, AND EKG Chest X-ray: (air-fluid levels in the right lower lung. Concerning for abscess. Consolidation/effusion to the right lung. There is signs of collapse on the right. Radiopaque foreign bodies noted on the left hemithorax.). Laboratory Tests: CBC w Diff: (DEVAN: 08/12/2016 14:15) ( [facility] Final results Test Result Flag Units (Reference) WHITE BLOOD COUNT 11.3 K/uL (4.5-11.5) RED BLOOD COUNT 3.65 L M/uL (4.50-5.90) HEMOGLOBIN 10.1 L gm/dL (13.5-17.5) HEMATOCRIT 30.6 L % (41.0-53.0) MEAN CELL VOLUME 84 fL (80-100) MEAN CORPUSCULAR HGB 28 pg (26-34) MEAN CORPUSCULAR HGB CONC 33 g/dL (31-37) RED CELL DISTRIBUTION WIDTH 15.8 H % (11.6-14.8) PLATELET COUNT 597 H K/uL (150-400) NEUTROPHIL % 79.0 H % (50-75) LYMPH % 7.2 L % (25-40) MONO % 12.2 % (3-14) EOSINOPHIL % 0.6 % (0-4) BASOPHIL % 1.0 % (0-2) Lactate, Serum: (DEVAN: 08/12/2016 14:15) ( [facility] 08/12/2016 15:01) Final results Test Result Flag Units (Reference) LACTIC ACID 1.3 mmol/L (0.4-2.0) CMP: (DEVAN: 08/12/2016 14:15) ( [facility] 08/12/2016 15:00) Final results Test Result Flag Units (Reference) GLUCOSE 88 mg/dL (70-110) BUN 17 mg/dL (7-18) CREATININE 0.7 mg/dL (0.6-1.3) Estimated GFR >60 mL/min Estimated GFR- >60 mL/min Note: Persistent reduction over 3 months in eGFR<60 mL/min/1.73 m2 defines CKD. Patients with eGFR values>=60 mL/min/1.73 m2 may also have CKD if evidence ofpersistent proteinuria. Additional information may be foundat www.kidney.org. SODIUM 130 L mmol/L (136-145) POTASSIUM 4.2 mmol/L (3.5-5.1) CHLORIDE 94 L mmol/L (98-107) CARBON DIOXIDE 25 mmol/L (21-32) CALCIUM 8.7 mg/dL (8.5-10.1) TOTAL PROTEIN 7.4 g/dL (6.4-8.2) ALBUMIN 2.2 L g/dL (3.3-5.0) BILIRUBIN, TOTAL 0.3 mg/dL (0.0-1.0) ALKALINE PHOSPHATASE 126 H U/L (46-116) AST (SGOT) 58 H U/L (15-37) ALT (SGPT) 26 U/L (12-78) . PROGRESS AND PROCEDURES Course of Care: the patient is a pleasant 66-year-old male with past medical history significant for lung cancer presented for evaluaf nitially patient had refused initial evaluation with laboratory studies and chest x-ray. Patient also declines offers for breathing treatments. Patient is noted to be tachycardic Blood pressure is normal. Patient with slight hypoxia and requiring oxygen for borderlinelevels. Patient is in low 90s on room air. Patient is in the high 90s onsupplemental oxygen via nasal cannula. Was able to talk to the patient in regards to plan of care. Was also able to discussed with the patient my goals for him while here in the emergency department. Patient had the expectation of being able toget a transfer [facility] the [facility] after reporting to the emergency department. The patient that he will need laboratory studies as well as an [facility]. Explained to the patientour need to update the CT onhis current medical status and would need to have a current set of laboratory studies and imaging. Patient was eventually agreeable to the treatment and plan. Laboratory studies and chest x-ray will be obtained. Laboratory studies including lactic acid are otherwise unremarkable. Patient has mild anemia with hemoglobin of 10.1 and hematocrit of 30.6. Patient had some improvement with his tachycardia given the IV fluids. Chest x-rays concerning for lung abscessversus mass versus pneumonia versus atelectasis. Because of the patient's condition,benefits of treating for antibiotics outweighs the risks. Discussed the patient the reason for antibodies and is agreeable to them. I discussion with patient in regards to his treatment here in the emergency department and need for transfer. Was informed by the CTof only one potential bed available and it needing to be an ICU patient. I discussed the case with the warehouse assistant and was transferred to the hospitalist who is character impersonator. Is able to discuss the patient's care with the hospitalist. Because of the patient's borderline vital signs and the potential need for ICU consult, we are able tospeak with the ICU doctor. We discussed the case at length and the patient was noted to be borderline candidate for ICU level care. Able to secure a bed for the patient. No other acute abnormalities noted on the patient's workup. Patient has been tolerating treatment. no acute abdomen to the patient's workup. Patient is nontoxic and in no acute distress. Patient is not septic my evaluation. Symptoms likely a result of decreased lungs functioning on the right hemithorax Secondary to lung cancer. updating family patient in regards to the plan of care. Patient is to be transferred by ALS. Informed written consent obtained for transfer. Reviewed risks and benefits. Prior to patient's department for an emergency department is noted to have improved tachycardia. Patient resting in bed in no acute distress. May contact [place] at . Critical care performed (40 minutes). Time is exclusive of separately billable procedures. Time includes: direct patient care, patient reassessment, coordination of patient care, interpretation of data (laboratory data, pulse oximetry and chest xrays), review of patient's medical records, medical consultation, family consultation regarding treatment decisions and documentation of patient care. Disposition: Benefits, risks and alternatives to transfer explained to patient and family. Transferred to [facility]. CLINICAL IMPRESSION Acute right-sided lung abscess Collapse of right lung secondary to metastatic lung cancer chronicmetastatic lung cancer tachycardia tachypnea. (Electronically signed by Parrish Cote Dr. 08/12/2016 20:33)
--- NOTE | 2016-08-12 18:43 | ED NURSING NOTES ---
Clinical Report - Nurses [facility] [place] [address] 08/12/2016 12:51 Patient: GUERDA GONZALEZ TRIAGE Triage time 1246 PM. Acuity: LEVEL 3. Chief Complaint: SHORTNESS OF BREATH, DIFFICULTY BREATHING, "ASTHMA ATTACK" and WHEEZING. Alert. No acute distress. SEPSIS SCREEN: Sepsis Screen. Negative (no infection suspected/documented). --13:03 Layne Pritchett R.N. 12:54 08/12/16. BP: 126/77 (regular adult cuff) taken on the left arm, via an automated monitor, while lying. HR: 131. RR: 24. O2 saturation: 100% on room air. Temp: 98.2 F (oral). Pain level now: 10/23. --13:03 Layne Pritchett R.N. Weight: 51.2 kg stated. Height/Length: 67 inches Per Patient. BMI: 17.7. --12:54 Layne Pritchett R.N. Medications Asprin. Gabapentin Oral. Motrin Oral. Tylenol PM Extra Strength Oral. --12:54 Layne Pritchett R.N. Albuterol Sulfate HFA Inhalation. --18:34 Layne Pritchett R.N. Proventil HFA Inhalation. --18:39 Layne Pritchett R.N. Morphine Sulfate ER Beads Oral. --18:41 Layne Pritchett R.N. LORazepam Oral. --18:42 Layne Pritchett R.N. Medication/allergy information source: the patient. --13:03 Layne Pritchett R.N. Allergies Antidepresants . --12:54 Layne Pritchett R.N. History Arrived by private vehicle. Historian: patient. Accompanied by family. Primary physician ([facility]). ( Pt states being at the [facility] for the past week, diagnosed with terminal lung cell cancer. Here due to SOB, tried inhaler with no results). This started last night. He has had a cough and wheezing. No back pain. Treatment PLAYROOM ATTENDANT: (proventil). PAST MEDICAL HX: Chronic obstructive pulmonary disease. Immunizations: status is unknown. SOCIAL HX: Former smoker, end date 06/2016. No infectious disease exposure. ABUSE ASSESSMENT: No report of abuse. SELF HARM ASSESSMENT: A self harm assessment was performed. The patient answered "no" to the question "Have you recently had thoughts about harming or killing others?". FALL RISK ASSESSMENT: Fall risk assessment completed. No fall risk identified. NUTRITIONAL RISK ASSESSMENT: The nutritional risk assessment revealed no deficiencies. FUNCTIONAL ASSESSMENT: Functional assessment: no impairments noted. LEARNING NEEDS ASSESSMENT: The learning needs assessment revealed no barriers. SKIN INTEGRITY ASSESSMENT: Skin integrity risk assessment completed. No skin integrity risk identified. --13:03 Layne Pritchett R.N. PROBLEMS: Hyponatremia. Anemia. Pancreatitis. Pleural Effusion. Lung collapse . Emphysema. Osteoporosis. Fibromyalgia. --12:55 Layne Pritchett R.N. ADDITIONAL SURGERIES: no known surgeries. Interventions ID band on patient. --13:03 Layne Pritchett R.N. PHYSICAL ASSESSMENT GENERAL / NEURO / PSYCH: Alert. Oriented X 4. Appears in no acute distress. Appears anxious. HEENT: Mucous membranes are pink. RESPIRATORY: Moderate respiratory distress. The patient can speak a few words at a time. Accessory muscle use. Cough. Decreased breath sounds in the bases bilaterally. Wheezing present. Rhonchi present. CVS: Capillary refill less than 2 seconds. GI / : Abdomen soft and nontender. Bowel sounds within normal limits. SKIN: Skin is warm. Skin is cool. Poor skin turgor. --13:04 Layne Pritchett R.N. NURSING PROGRESS NOTES Cardiac rhythm: sinus tachycardia. The initial plan of care for this patient has been created This plan of care was discussed with the patient. Oxygen administered by nasal cannula at 2 liters. Monitoring of patient in place. Patient gowned. Reassurance given. ( PT refusing IV /lab and xray). Two patient identifiers checked. Call light placed in reach. Side rails up x 1. Bed placed in lowest position. Brakes of bed on. --13:05 Layne Pritchett R.N. 14:16 08/12/2016 Site #1 started via IV in the right hand with an 20g angiocath; one attempt. Blood drawn: rainbow set. Labeled in the presence of the patient and sent to the lab. Saline lock flushed. --14:16 Layne Pritchett R.N. 14:16 08/12/2016 Morphine IVP 4 mg given over 2 minute(s) via site #1. Allergies verified, confirmed 5 rights and sedative warning given to the patient and patient's family. IV patency established. IV site checked: no pain, redness, or swelling. IV flushed thoroughly pre- and post-medication administration. IVP given by RN. --14:16 Layne Pritchett R.N. 14:16 08/12/2016 Started bag #1 500 mL IV Fluids IV NS (Saline); at 500 mL/hr over 1 hour(s) via site #1 via IV pump. Allergies verified and confirmed 5 rights. IV patency established. IV site checked: no pain, redness, or swelling. IV flushed thoroughly pre- and post-medication administration. --14:16 Layne Pritchett R.N. Cardiac rhythm: sinus tachycardia. Oxygen administered by nasal cannula at 2 liters. classroom monitor, pulse oximeter and NIBP monitor placed on patient. Patient identifiers checked. Call light placed in reach. --14:17 Layne Pritchett R.N. 14:16 08/12/16. BP: 99/68. HR: 125. RR: 24. O2 saturation: 97% on nasal cannula at 2 liters/minute. Pain level now: 810. --14:17 Layne Pritchett R.N. 13:00 08/12/16. BP: 112/64. HR: 124. RR: 22. O2 saturation: 97% on nasal cannula at 2 liters/minute. Pain level now: 8/10. --14:18 Layne Pritchett R.N. late entry - 13:00 PM. Cardiac rhythm: sinus tachycardia. Reassurance given. The patient is calm. Overall patient status is the same- he states feels better. Call light placed in reach. --14:18 Layne Pritchett R.N. 15:24 08/12/2016 Started 1 gm of Vancomycin IVPB in bag #1 200 mL; at 200 mL/hr over 1 hour(s) via site #1 via IV pump. Allergies verified and confirmed 5 rights. IV patency established. IV site checked: no pain, redness, or swelling. IV flushed thoroughly pre- and post-medication administration. --15:24 Layne Pritchett R.N. 15:23 08/12/16. BP: 115/75 (regular adult cuff) taken on the right arm, via an automated monitor, while lying. HR: 117. RR: 27. O2 saturation: 98% on nasal cannula at 2 liters/minute. Temp: 98.9 F (oral). Pain level now: 10/23. --15:26 Layne Pritchett R.N. Cardiac rhythm: sinus tachycardia. Oxygen administered by nasal cannula at 2 liters. classroom monitor, pulse oximeter and NIBP monitor placed on patient. Reassurance given. Reassessment after oxygen and fluids administered and medication administered. He is resting quietly and has had no adverse reaction. Overall patient status is improved- he states feels better. Two patient identifiers checked. --15:26 Layne Pritchett R.N. 14:36 08/12/2016 Morphine IVP Response: no adverse reaction pain is improving. Symptoms have improved. --17:36 Layne Pritchett R.N. 16:34 08/12/2016 Vancomycin IVPB Discontinued: bag #1 infused. Total amount infused: 200 mL. IV patency established. IV site checked: no pain, redness, or swelling. IV flushed thoroughly. --16:44 Marcos Main R.N. 17:23 08/12/2016 Started 2 gm of Cefepime IVPB in bag #1 50 mL; at 50 mL/hr over 30 minute(s) via site #1 via IV pump. Allergies verified and confirmed 5 rights. IV patency established. IV site checked: no pain, redness, or swelling. IV flushed thoroughly pre- and post-medication administration. --17:23 Layne Pritchett R.N. 17:21 08/12/16. BP: 102/74. HR: 122. RR: 23. O2 saturation: 100% on nasal cannula at 2 liters/minute. Temp: 98.1 F (oral). Pain level now: 12/23. --17:23 Layne Pritchett R.N. Cardiac rhythm: sinus tachycardia. classroom monitor, pulse oximeter and NIBP monitor placed on patient. Reassurance given. Reassessment after oxygen and fluids administered. He is calm. Overall patient status is the same- he states feels the same. ( awaiting on transfer to [facility]). Patient identifiers checked. Call light placed in reach. --17:23 Layne Pritchett R.N. 17:28 08/12/2016 Morphine IVP 4 mg given over 2 minute(s) via site #1. Allergies verified, confirmed 5 rights and sedative warning given to the patient. IV patency established. IV site checked: no pain, redness, or swelling. IV flushed thoroughly pre- and post-medication administration. IVP given by RN. --17:28 Layne Pritchett R.N. 17:56 08/12/2016 Started 750 mg of Levofloxacin IVPB in bag #1 150 mL; at 150 mL/hr over 1.5 hour(s) via site #1 via IV pump. Allergies verified and confirmed 5 rights. IV patency established. IV site checked: no pain, redness, or swelling. IV flushed thoroughly pre- and post-medication administration. --17:57 Layne Pritchett R.N. 18:45 08/12/2016 Site #1 reassessed; patent, infusing well and no signs of infection or infiltration. --18:45 Layne Pritchett R.N. Cardiac rhythm: sinus tachycardia. Oxygen administered by nasal cannula at 2 liters. classroom monitor, pulse oximeter and NIBP monitor placed on patient. Reassurance given. Reassessment after oxygen and fluids administered. He is calm and resting quietly and has had no adverse reaction. Overall patient status is the same- he states feels better. RESPIRATORY: Denies difficulty breathing. CVS: Denies chest pain. --18:45 Layne Pritchett R.N. 18:43 08/12/16. BP: 135/85 (regular adult cuff) taken on the left arm, via an automated monitor, while lying. HR: 123. RR: 28. O2 saturation: 100% on nasal cannula at 2 liters/minute. Pain level now: 10/23. --18:45 Layne Pritchett R.N. ( Pt updated on awaiting on transport for the [facility], support provided, pt resting comfortably). Patient waiting for transportation and transfer (to [facility]). --19:12 Layne Pritchett R.N. 15:31 08/12/2016 IV Fluids IV NS Discontinued: bag #1 completed upon transfer. Total amount infused: 500 mL. IV patency established. IV site checked: no pain, redness, or swelling. IV flushed thoroughly. --20:31 Layne Pritchett R.N. 18:05 08/12/2016 Morphine IVP Response: no adverse reaction. --20:30 Layne Pritchett R.N. 20:05 08/12/2016 Levofloxacin IVPB Discontinued: bag #1 completed upon discharge. Total amount infused: 250 mL. IV patency established. IV site checked: no pain, redness, or swelling. IV flushed thoroughly. --20:30 Layne Pritchett R.N. 20:15 08/12/2016 Site #1 reassessed; patent, line flushes easily and infusing well. Line flushed with saline. Good blood return present. --20:30 Layne Pritchett R.N. DISPOSITION / DISCHARGE Cardiac rhythm: sinus tachycardia. Condition at departure: improved and stable. The goals identified in the patient's plan of care were met. Transported via by EMS and transport team with monitor, IV and O2. Bed obtained and ready. FALL RISK ASSESSMENT: Fall risk assessment completed. No fall risk identified. --20:04 Layne Pritchett R.N. 20:03 08/12/16. BP: 154/85. HR: 124. RR: 22. O2 saturation: 100% on nasal cannula. Temp: 97.8 F (oral). Pain level now: 10/23. --20:04 Layne Pritchett R.N. Departure time: 2026 PM. --20:27 Layne Pritchett R.N. Report was given to a nurse via a phone call. Report included patient's care, treatment, medications, reviewed medication reconcilliation, and condition (including any recent changes or anticipated changes). All questions were answered. Report was acknowledged and care was transferred. ( [facility] for transport, report given to both RN and admitting facility ([facility]) VSS, IV site intact.). --20:29 Layne Pritchett R.N. Locked/Released at 08/12/2016 20:31 by Layne Pritchett R.N.
--- NOTE | 2016-08-12 18:43 | ED CLINICAL REPORT ---
Clinical Report - Physicians/Mid Levels [facility] [address] [place] [address] 08/12/2016 12:51 Patient: GUERDA GONZALEZ Arrived- By private vehicle. Historian- patient and family. HISTORY OF PRESENT ILLNESS Chief Complaint: DYSPNEA. This started past week and is still present (worsening). It was gradual in onset and has been constant and waxing/waning but is not gone now. The dyspnea is worsened by exertion, is improved by rest and is improved with oxygen. The patient has had a cough. No chest pain or discomfort or calf pain. (patient reports history of lung cancer and recent admission to the [facility]. Patient reports that there cannot put lungs [place] however patient declined at that time. Patient reports he was discharged proximally 2 days ago and left AGAINST MEDICAL ADVICE. Patient reports now that he had thought about it, he would like to have the stents placed. Patient initially had refused all interventions at this time including IV, chest x-ray, laboratory studies. Was able talk to patient in regards to these evaluation studies and was eventually agreeable to them.). Similar symptoms previously: Recent medical care: The patient was seen recently and hospitalized. REVIEW OF SYSTEMS All systems otherwise negative, except as recorded above. PAST HISTORY See nurses notes. SOCIAL HISTORY Former smoker. No alcohol use or drug use. No recent travel. Is a local resident. ADDITIONAL NOTES The nursing notes have been reviewed. PHYSICAL EXAM Vital Signs: 08/12/2016 12:54 BP: 126/77. HR: 131. RR: 24. O2 saturation: 100%. Temp: 98.2 F. Pain level now: 6/10. Blood pressure normal. Oxygen saturation normal. Appearance: Alert. No acute distress. (thin appearing, non-toxic). Eyes: Pupils equal, round and reactive to light. Eyes normal inspection. ENT: Ears normal. Nose normal. Pharynx normal. Uvula midline. Neck: Normal inspection. No jugular venous distention. Neck supple. CVS: Tachycardia. Heart sounds normal. Pulses normal. Respiratory: Mild respiratory distress with accessory muscle use. Moderately decreased air movement in the right lung. No wheezes, stridor, rales or rhonchi. Abdomen: Soft and nontender. No organomegaly. Back: Normal inspection. Skin: Skin warm and dry. Normal skin color. No rash. Normal skin turgor. Extremities: Extremities exhibit normal ROM. No lower extremity edema. LABS, X-RAYS, AND EKG Chest X-ray: (air-fluid levels in the right lower lung. Concerning for abscess. Consolidation/effusion to the right lung. There is signs of collapse on the right. Radiopaque foreign bodies noted on the left hemithorax.). Laboratory Tests: CBC w Diff: (DEVAN: 08/12/2016 14:15) ( [facility] 08/12/2016 14:28) Final results Test Result Flag Units (Reference) WHITE BLOOD COUNT 11.3 K/uL (4.5-11.5) RED BLOOD COUNT 3.65 L M/uL (4.50-5.90) HEMOGLOBIN 10.1 L gm/dL (13.5-17.5) HEMATOCRIT 30.6 L % (41.0-53.0) MEAN CELL VOLUME 84 fL (80-100) MEAN CORPUSCULAR HGB 28 pg (26-34) MEAN CORPUSCULAR HGB CONC 33 g/dL (31-37) RED CELL DISTRIBUTION WIDTH 15.8 H % (11.6-14.8) PLATELET COUNT 597 H K/uL (150-400) NEUTROPHIL % 79.0 H % (50-75) LYMPH % 7.2 L % (25-40) MONO % 12.2 % (3-14) EOSINOPHIL % 0.6 % (0-4) BASOPHIL % 1.0 % (0-2) Lactate, Serum: (DEVAN: 08/12/2016 14:15) ( [facility] 08/12/2016 15:01) Final results Test Result Flag Units (Reference) LACTIC ACID 1.3 mmol/L (0.4-2.0) CMP: (DEVAN: 08/12/2016 14:15) ( [facility] 08/12/2016 15:00) Final results Test Result Flag Units (Reference) GLUCOSE 88 mg/dL (70-110) BUN 17 mg/dL (7-18) CREATININE 0.7 mg/dL (0.6-1.3) Estimated GFR >60 mL/min Estimated GFR- >60 mL/min Note: Persistent reduction over 3 months in eGFR<60 mL/min/1.73 m2 defines CKD. Patients with eGFR values>=60 mL/min/1.73 m2 may also have CKD if evidence ofpersistent proteinuria. Additional information may be foundat [email or web address].org. SODIUM 130 L mmol/L (136-145) POTASSIUM 4.2 mmol/L (3.5-5.1) CHLORIDE 94 L mmol/L (98-107) CARBON DIOXIDE 25 mmol/L (21-32) CALCIUM 8.7 mg/dL (8.5-10.1) TOTAL PROTEIN 7.4 g/dL (6.4-8.2) ALBUMIN 2.2 L g/dL (3.3-5.0) BILIRUBIN, TOTAL 0.3 mg/dL (0.0-1.0) ALKALINE PHOSPHATASE 126 H U/L (46-116) AST (SGOT) 58 H U/L (15-37) ALT (SGPT) 26 U/L (12-78) . PROGRESS AND PROCEDURES Course of Care: the patient is a pleasant 66-year-old male with past medical history significant for lung cancer presented for evaluaf nitially patient had refused initial evaluation with laboratory studies and chest x-ray. Patient also declines offers for breathing treatments. Patient is noted to be tachycardic Blood pressure is normal. Patient with slight hypoxia and requiring oxygen for borderlinelevels. Patient is in low 90s on room air. Patient is in the high 90s onsupplemental oxygen via nasal cannula. Was able to talk to the patient in regards to plan of care. Was also able to discussed with the patient my goals for him while here in the emergency department. Patient had the expectation of being able toget a [facility] to [facility] after reporting to the emergency department. The patient that he will need laboratory studies as well as an [facility]. Explained to the patientour need to update the [facility] onhis current medical status and would need to have a current set of laboratory studies and imaging. Patient was eventually agreeable to the treatment and plan. Laboratory studies and chest x-ray will be obtained. Laboratory studies including lactic acid are otherwise unremarkable. Patient has mild anemia with hemoglobin of 10.1 and hematocrit of 30.6. Patient had some improvement with his tachycardia given the IV fluids. Chest x-rays concerning for lung abscessversus mass versus pneumonia versus atelectasis. Because of the patient's condition,benefits of treating for antibiotics outweighs the risks. Discussed the patient the reason for antibodies and is agreeable to them. I discussion with patient in regards to his treatment here in the emergency department and need for transfer. [facility] by [facility] available and it needing to be an ICU patient. I discussed the case with the tank house operator and was transferred to the hospitalist who is semiconductor processing technician. Is able to discuss the patient's care with the hospitalist. Because of the patient's borderline vital signs and the potential need for ICU consult, we are able tospeak with the ICU doctor. We discussed the case at length and the patient was noted to be borderline candidate for ICU level care. Able to secure a bed for the patient. No other acute abnormalities noted on the patient's workup. Patient has been tolerating treatment. no acute abdomen to the patient's workup. Patient is nontoxic and in no acute distress. Patient is not septic my evaluation. Symptoms likely a result of decreased lungs functioning on the right hemithorax Secondary to lung cancer. updating family patient in regards to the plan of care. Patient is to be transferred by ALS. Informed written consent obtained for transfer. Reviewed risks and benefits. Prior to patient's department for an emergency department is noted to have improved tachycardia. Patient resting in bed in no acute distress. May contact [place] at . Critical care performed (40 minutes). Time is exclusive of separately billable procedures. Time includes: direct patient care, patient reassessment, coordination of patient care, interpretation of data (laboratory data, pulse oximetry and chest xrays), review of patient's medical records, medical consultation, family consultation regarding treatment decisions and documentation of patient care. Disposition: Benefits, risks and alternatives to transfer explained to patient and family. Transferred to [facility]. CLINICAL IMPRESSION Acute right-sided lung abscess Collapse of right lung secondary to metastatic lung cancer chronicmetastatic lung cancer tachycardia tachypnea. (Electronically signed by Parrish Cote Dr. 08/12/2016 20:33)
--- NOTE | 2016-08-12 18:43 | ED NURSING NOTES ---
Clinical Report - Nurses [facility] [place] [address] 08/12/2016 12:51 Patient: GUERDA GONZALEZ TRIAGE Triage time 1246 PM. Acuity: LEVEL 3. Chief Complaint: SHORTNESS OF BREATH, DIFFICULTY BREATHING, "ASTHMA ATTACK" and WHEEZING. Alert. No acute distress. SEPSIS SCREEN: Sepsis Screen. Negative (no infection suspected/documented). --13:03 Layne Pritchett R.N. 12:54 08/12/16. BP: 126/77 (regular adult cuff) taken on the left arm, via an automated monitor, while lying. HR: 131. RR: 24. O2 saturation: 100% on room air. Temp: 98.2 F (oral). Pain level now: 10/23. --13:03 Layne Pritchett R.N. Weight: 51.2 kg stated. Height/Length: 67 inches Per Patient. BMI: 17.7. --12:54 Layne Pritchett R.N. Medications Asprin. Gabapentin Oral. Motrin Oral. Tylenol PM Extra Strength Oral. --12:54 Layne Pritchett R.N. Albuterol Sulfate HFA Inhalation. --18:34 Layne Pritchett R.N. Proventil HFA Inhalation. --18:39 Layne Pritchett R.N. Morphine Sulfate ER Beads Oral. --18:41 Layne Pritchett R.N. LORazepam Oral. --18:42 Layne Pritchett R.N. Medication/allergy information source: the patient. --13:03 Layne Pritchett R.N. Allergies Antidepresants . --12:54 Layne Pritchett R.N. History Arrived by private vehicle. Historian: patient. Accompanied by family. Primary physician ([facility]). ( Pt states being at the [facility] for the past week, diagnosed with terminal lung cell cancer. Here due to SOB, tried inhaler with no results). This started last night. He has had a cough and wheezing. No back pain. Treatment AIRPORT SCREENER: (proventil). PAST MEDICAL HX: Chronic obstructive pulmonary disease. Immunizations: status is unknown. SOCIAL HX: Former smoker, end date 06/2016. No infectious disease exposure. ABUSE ASSESSMENT: No report of abuse. SELF HARM ASSESSMENT: A self harm assessment was performed. The patient answered "no" to the question "Have you recently had thoughts about harming or killing others?". FALL RISK ASSESSMENT: Fall risk assessment completed. No fall risk identified. NUTRITIONAL RISK ASSESSMENT: The nutritional risk assessment revealed no deficiencies. FUNCTIONAL ASSESSMENT: Functional assessment: no impairments noted. LEARNING NEEDS ASSESSMENT: The learning needs assessment revealed no barriers. SKIN INTEGRITY ASSESSMENT: Skin integrity risk assessment completed. No skin integrity risk identified. --13:03 Layne Pritchett R.N. PROBLEMS: Hyponatremia. Anemia. Pancreatitis. Pleural Effusion. Lung collapse . Emphysema. Osteoporosis. Fibromyalgia. --12:55 Layne Pritchett R.N. ADDITIONAL SURGERIES: no known surgeries. Interventions ID band on patient. --13:03 Layne Pritchett R.N. PHYSICAL ASSESSMENT GENERAL / NEURO / PSYCH: Alert. Oriented X 4. Appears in no acute distress. Appears anxious. HEENT: Mucous membranes are pink. RESPIRATORY: Moderate respiratory distress. The patient can speak a few words at a time. Accessory muscle use. Cough. Decreased breath sounds in the bases bilaterally. Wheezing present. Rhonchi present. CVS: Capillary refill less than 2 seconds. GI / : Abdomen soft and nontender. Bowel sounds within normal limits. SKIN: Skin is warm. Skin is cool. Poor skin turgor. --13:04 Layne Pritchett R.N. NURSING PROGRESS NOTES Cardiac rhythm: sinus tachycardia. The initial plan of care for this patient has been created This plan of care was discussed with the patient. Oxygen administered by nasal cannula at 2 liters. Monitoring of patient in place. Patient gowned. Reassurance given. ( PT refusing IV /lab and xray). Two patient identifiers checked. Call light placed in reach. Side rails up x 1. Bed placed in lowest position. Brakes of bed on. --13:05 Layne Pritchett R.N. 14:16 08/12/2016 Site #1 started via IV in the right hand with an 20g angiocath; one attempt. Blood drawn: rainbow set. Labeled in the presence of the patient and sent to the lab. Saline lock flushed. --14:16 Layne Pritchett R.N. 14:16 08/12/2016 Morphine IVP 4 mg given over 2 minute(s) via site #1. Allergies verified, confirmed 5 rights and sedative warning given to the patient and patient's family. IV patency established. IV site checked: no pain, redness, or swelling. IV flushed thoroughly pre- and post-medication administration. IVP given by RN. --14:16 Layne Pritchett R.N. 14:16 08/12/2016 Started bag #1 500 mL IV Fluids IV NS (Saline); at 500 mL/hr over 1 hour(s) via site #1 via IV pump. Allergies verified and confirmed 5 rights. IV patency established. IV site checked: no pain, redness, or swelling. IV flushed thoroughly pre- and post-medication administration. --14:16 Layne Pritchett R.N. Cardiac rhythm: sinus tachycardia. Oxygen administered by nasal cannula at 2 liters. quality assurance monitor, pulse oximeter and NIBP monitor placed on patient. Patient identifiers checked. Call light placed in reach. --14:17 Layne Pritchett R.N. 14:16 08/12/16. BP: 99/68. HR: 125. RR: 24. O2 saturation: 97% on nasal cannula at 2 liters/minute. Pain level now: 810. --14:17 Layne Pritchett R.N. 13:00 08/12/16. BP: 112/64. HR: 124. RR: 22. O2 saturation: 97% on nasal cannula at 2 liters/minute. Pain level now: 8/10. --14:18 Layne Pritchett R.N. late entry - 13:00 PM. Cardiac rhythm: sinus tachycardia. Reassurance given. The patient is calm. Overall patient status is the same- he states feels better. Call light placed in reach. --14:18 Layne Pritchett R.N. 15:24 08/12/2016 Started 1 gm of Vancomycin IVPB in bag #1 200 mL; at 200 mL/hr over 1 hour(s) via site #1 via IV pump. Allergies verified and confirmed 5 rights. IV patency established. IV site checked: no pain, redness, or swelling. IV flushed thoroughly pre- and post-medication administration. --15:24 Layne Pritchett R.N. 15:23 08/12/16. BP: 115/75 (regular adult cuff) taken on the right arm, via an automated monitor, while lying. HR: 117. RR: 27. O2 saturation: 98% on nasal cannula at 2 liters/minute. Temp: 98.9 F (oral). Pain level now: 10/23. --15:26 Layne Pritchett R.N. Cardiac rhythm: sinus tachycardia. Oxygen administered by nasal cannula at 2 liters. quality assurance monitor, pulse oximeter and NIBP monitor placed on patient. Reassurance given. Reassessment after oxygen and fluids administered and medication administered. He is resting quietly and has had no adverse reaction. Overall patient status is improved- he states feels better. Two patient identifiers checked. --15:26 Layne Pritchett R.N. 14:36 08/12/2016 Morphine IVP Response: no adverse reaction pain is improving. Symptoms have improved. --17:36 Layne Pritchett R.N. 16:34 08/12/2016 Vancomycin IVPB Discontinued: bag #1 infused. Total amount infused: 200 mL. IV patency established. IV site checked: no pain, redness, or swelling. IV flushed thoroughly. --16:44 Marcos Main R.N. 17:23 08/12/2016 Started 2 gm of Cefepime IVPB in bag #1 50 mL; at 50 mL/hr over 30 minute(s) via site #1 via IV pump. Allergies verified and confirmed 5 rights. IV patency established. IV site checked: no pain, redness, or swelling. IV flushed thoroughly pre- and post-medication administration. --17:23 Layne Pritchett R.N. 17:21 08/12/16. BP: 102/74. HR: 122. RR: 23. O2 saturation: 100% on nasal cannula at 2 liters/minute. Temp: 98.1 F (oral). Pain level now: 12/23. --17:23 Layne Pritchett R.N. Cardiac rhythm: sinus tachycardia. quality assurance monitor, pulse oximeter and NIBP monitor placed on patient. Reassurance given. Reassessment after oxygen and fluids administered. He is calm. Overall patient status is the same- he states feels the same. ( awaiting on transfer to [facility]). Patient identifiers checked. Call light placed in reach. --17:23 Layne Pritchett R.N. 17:28 08/12/2016 Morphine IVP 4 mg given over 2 minute(s) via site #1. Allergies verified, confirmed 5 rights and sedative warning given to the patient. IV patency established. IV site checked: no pain, redness, or swelling. IV flushed thoroughly pre- and post-medication administration. IVP given by RN. --17:28 Layne Pritchett R.N. 17:56 08/12/2016 Started 750 mg of Levofloxacin IVPB in bag #1 150 mL; at 150 mL/hr over 1.5 hour(s) via site #1 via IV pump. Allergies verified and confirmed 5 rights. IV patency established. IV site checked: no pain, redness, or swelling. IV flushed thoroughly pre- and post-medication administration. --17:57 Layne Pritchett R.N. 18:45 08/12/2016 Site #1 reassessed; patent, infusing well and no signs of infection or infiltration. --18:45 Layne Pritchett R.N. Cardiac rhythm: sinus tachycardia. Oxygen administered by nasal cannula at 2 liters. quality assurance monitor, pulse oximeter and NIBP monitor placed on patient. Reassurance given. Reassessment after oxygen and fluids administered. He is calm and resting quietly and has had no adverse reaction. Overall patient status is the same- he states feels better. RESPIRATORY: Denies difficulty breathing. CVS: Denies chest pain. --18:45 Layne Pritchett R.N. 18:43 08/12/16. BP: 135/85 (regular adult cuff) taken on the left arm, via an automated monitor, while lying. HR: 123. RR: 28. O2 saturation: 100% on nasal cannula at 2 liters/minute. Pain level now: 10/23. --18:45 Layne Pritchett R.N. ( Pt updated on awaiting on transport for the [facility], support provided, pt resting comfortably). Patient waiting for transportation and transfer (to [facility]). --19:12 Layne Pritchett R.N. 15:31 08/12/2016 IV Fluids IV NS Discontinued: bag #1 completed upon transfer. Total amount infused: 500 mL. IV patency established. IV site checked: no pain, redness, or swelling. IV flushed thoroughly. --20:31 Layne Pritchett R.N. 18:05 08/12/2016 Morphine IVP Response: no adverse reaction. --20:30 Layne Pritchett R.N. 20:05 08/12/2016 Levofloxacin IVPB Discontinued: bag #1 completed upon discharge. Total amount infused: 250 mL. IV patency established. IV site checked: no pain, redness, or swelling. IV flushed thoroughly. --20:30 Layne Pritchett R.N. 20:15 08/12/2016 Site #1 reassessed; patent, line flushes easily and infusing well. Line flushed with saline. Good blood return present. --20:30 Layne Pritchett R.N. DISPOSITION / DISCHARGE Cardiac rhythm: sinus tachycardia. Condition at departure: improved and stable. The goals identified in the patient's plan of care were met. Transported via by EMS and transport team with monitor, IV and O2. Bed obtained and ready. FALL RISK ASSESSMENT: Fall risk assessment completed. No fall risk identified. --20:04 Layne Pritchett R.N. 20:03 08/12/16. BP: 154/85. HR: 124. RR: 22. O2 saturation: 100% on nasal cannula. Temp: 97.8 F (oral). Pain level now: 10/23. --20:04 Layne Pritchett R.N. Departure time: 2026 PM. --20:27 Layne Pritchett R.N. Report was given to a nurse via a phone call. Report included patient's care, treatment, medications, reviewed medication reconcilliation, and condition (including any recent changes or anticipated changes). All questions were answered. Report was acknowledged and care was transferred. ( [facility] for transport, report given to both RN and admitting facility ([facility]) VSS, IV site intact.). --20:29 Layne Pritchett R.N. Locked/Released at 08/12/2016 20:31 by Layne Pritchett R.N.
--- NOTE | 2016-08-12 20:33 | ED DISCHARGE INSTRUCTIONS ---
Patient: GUERDA GONZALEZ General Instructions [facility] VisitID: [id number] [address] [place] [address] 66y, M Registration Date/Time: 08/12/2016 Acute right-sided lung abscess Collapse of right lung secondary to metastatic lung cancer chronicmetastatic lung cancer tachycardia tachypnea. (Electronically signed by Parrish Cote Dr. 08/12/2016 20:33)
--- NOTE | 2016-08-12 20:33 | ED MAR SUMMARY ---
..... Medication Administration Record [facility] [address] [place] [address] Patient: GUERDA GONZALEZ Visit ID: [id number] 66y, M Weight: 51.2 kg Height/Length: 67 in BMI: 17.7 ALLERGIES: Antidepresants Start 14:16 08/12/2016 Layne Pritchett R.N., Stop 15:31 08/12/2016 Layne Pritchett R.N. Medication Administered: IV NS (SALINE), Dose: IV Fluids over 1 hour(s), Rate: 500 mL/hr, Dispensed: 500 mL bag, Site: #1 right hand. Medication Ordered: IV NS : initial bolus 500 mL (1000 mL/hr), then none - for X1 (NOW). Given 14:16 08/12/2016 Layne Pritchett R.N. Medication Administered: MORPHINE [IVP], Dose: 4 mg IVP over 2 minute(s), Site: #1 right hand. Medication Ordered: Morphine IV 4 mg (HIGH ALERT MEDICATION, NOW). Start 15:24 08/12/2016 Layne Pritchett R.N., Stop 16:34 08/12/2016 Marcos Main R.N. Medication Administered: VANCOMYCIN [IVPB], Dose: 1 gm IVPB over 1 hour(s), Rate: 200 mL/hr, Dispensed: 200 mL bag, Site: #1 right hand. Medication Ordered: Vancomycin IV 1 gm/200mL (NOW). Start 17:23 08/12/2016 Layne Pritchett R.N. Medication Administered: CEFEPIME [IVPB], Dose: 2 gm IVPB over 30 minute(s), Rate: 50 mL/hr, Dispensed: 50 mL bag, Site: #1 right hand. Medication Ordered: Cefepime IV 2 gm/50mL (NOW). Given 17:28 08/12/2016 Layne Pritchett R.N. Medication Administered: MORPHINE [IVP], Dose: 4 mg IVP over 2 minute(s), Site: #1 right hand. Medication Ordered: Morphine IV 4 mg (HIGH ALERT MEDICATION, NOW). Start 17:56 08/12/2016 Layne Pritchett R.N., Stop 20:05 08/12/2016 Layne Pritchtet R.N. Medication Administered: LEVOFLOXACIN [IVPB], Dose: 750 mg IVPB over 1.5 hour(s), Rate: 150 mL/hr, Dispensed: 150 mL bag, Site: #1 right hand. Medication Ordered: Levofloxacin IV 750 mg/150 mL (NOW).
--- NOTE | 2016-08-12 20:33 | ED MAR SUMMARY ---
..... Medication Administration Record [facility] [address] [place] [address] Patient: GUERDA GONZALEZ Visit ID: [id number] 66y, M Weight: 51.2 kg Height/Length: 67 in BMI: 17.7 ALLERGIES: Antidepresants Start 14:16 08/12/2016 Layne Pritchett R.N., Stop 15:31 08/12/2016 Layne Pritchett R.N. Medication Administered: IV NS (SALINE), Dose: IV Fluids over 1 hour(s), Rate: 500 mL/hr, Dispensed: 500 mL bag, Site: #1 right hand. Medication Ordered: IV NS : initial bolus 500 mL (1000 mL/hr), then none - for X1 (NOW). Given 14:16 08/12/2016 Layne Pritchett R.N. Medication Administered: MORPHINE [IVP], Dose: 4 mg IVP over 2 minute(s), Site: #1 right hand. Medication Ordered: Morphine IV 4 mg (HIGH ALERT MEDICATION, NOW). Start 15:24 08/12/2016 Layne Pritchett R.N., Stop 16:34 08/12/2016 Marcos Main R.N. Medication Administered: VANCOMYCIN [IVPB], Dose: 1 gm IVPB over 1 hour(s), Rate: 200 mL/hr, Dispensed: 200 mL bag, Site: #1 right hand. Medication Ordered: Vancomycin IV 1 gm/200mL (NOW). Start 17:23 08/12/2016 Layne Pritchett R.N. Medication Administered: CEFEPIME [IVPB], Dose: 2 gm IVPB over 30 minute(s), Rate: 50 mL/hr, Dispensed: 50 mL bag, Site: #1 right hand. Medication Ordered: Cefepime IV 2 gm/50mL (NOW). Given 17:28 08/12/2016 Layne Pritchett R.N. Medication Administered: MORPHINE [IVP], Dose: 4 mg IVP over 2 minute(s), Site: #1 right hand. Medication Ordered: Morphine IV 4 mg (HIGH ALERT MEDICATION, NOW). Start 17:56 08/12/2016 Layne Pritchett R.N., Stop 20:05 08/12/2016 Layne Pritchett R.N. Medication Administered: LEVOFLOXACIN [IVPB], Dose: 750 mg IVPB over 1.5 hour(s), Rate: 150 mL/hr, Dispensed: 150 mL bag, Site: #1 right hand. Medication Ordered: Levofloxacin IV 750 mg/150 mL (NOW).
--- NOTE | 2016-08-12 20:33 | ED DISCHARGE INSTRUCTIONS ---
Patient: GUERDA GONZALEZ General Instructions [facility] VisitID: [id number] [address] [place] [address] 66y, M Registration Date/Time: 08/12/2016 Acute right-sided lung abscess Collapse of right lung secondary to metastatic lung cancer chronicmetastatic lung cancer tachycardia tachypnea. (Electronically signed by Parrish Cote Dr. 08/12/2016 20:33)
--- NOTE | 2016-08-12 20:33 | ED MED RECONCILIATION SUMMARY ---
Patient: GUERDA GONZALEZ Medication Reconciliation Report [facility] VisitID: [id number] [address] [place] [address] 66y, M Registration Date/Time: 08/12/2016 Weight: 51.2 kg Height/Length: 67 in. BMI: 17.7 ALLERGIES: Antidepresants The patient's Home Medications are listed below: THE FOLLOWING MEDICATIONS NEED TO BE RECONCILED: Albuterol Sulfate HFA Inhalation Asprin Gabapentin Oral LORazepam Oral Morphine Sulfate ER Beads Oral Motrin Oral Proventil HFA Inhalation Tylenol PM Extra Strength Oral The source(s) of the original Home Medication information: patient The following Medications were given to the patient in the Emergency Department: Morphine [IVP] IVP 4 mg, administered: 08/12/2016 2:16:00 PM IV NS IV Fluids bolus 0, then 500 mL/hr, administered: 08/12/2016 2:16:00 PM Vancomycin [IVPB] IVPB bolus 0, then 1 gm 200 mL/hr, administered: 08/12/2016 3:24:00 PM Cefepime [IVPB] IVPB bolus 0, then 2 gm 50 mL/hr, administered: 08/12/2016 5:23:00 PM Morphine [IVP] IVP 4 mg, administered: 08/12/2016 5:28:00 PM Levofloxacin [IVPB] IVPB bolus 0, then 750 mg 150 mL/hr, administered: 08/12/2016 5:56:00 PM The following Medications were prescribed to the patient: None.
--- NOTE | 2016-08-12 20:33 | ED MED RECONCILIATION SUMMARY ---
Patient: GUERDA GONZALEZ Medication Reconciliation Report [facility] VisitID: [id number] [address] [place] [address] 66y, M Registration Date/Time: 08/12/2016 Weight: 51.2 kg Height/Length: 67 in. BMI: 17.7 ALLERGIES: Antidepresants The patient's Home Medications are listed below: THE FOLLOWING MEDICATIONS NEED TO BE RECONCILED: Albuterol Sulfate HFA Inhalation Asprin Gabapentin Oral LORazepam Oral Morphine Sulfate ER Beads Oral Motrin Oral Proventil HFA Inhalation Tylenol PM Extra Strength Oral The source(s) of the original Home Medication information: patient The following Medications were given to the patient in the Emergency Department: Morphine [IVP] IVP 4 mg, administered: 08/12/2016 2:16:00 PM IV NS IV Fluids bolus 0, then 500 mL/hr, administered: 08/12/2016 2:16:00 PM Vancomycin [IVPB] IVPB bolus 0, then 1 gm 200 mL/hr, administered: 08/12/2016 3:24:00 PM Cefepime [IVPB] IVPB bolus 0, then 2 gm 50 mL/hr, administered: 08/12/2016 5:23:00 PM Morphine [IVP] IVP 4 mg, administered: 08/12/2016 5:28:00 PM Levofloxacin [IVPB] IVPB bolus 0, then 750 mg 150 mL/hr, administered: 08/12/2016 5:56:00 PM The following Medications were prescribed to the patient: None.
== END 2016-08-12 20:26 ==
LOC: ED SRH 12:50
DX: J85.2 Abscess of lung without pneumonia (principal); J98.19 Other pulmonary collapse; C80.1 Malignant (primary) neoplasm, unspecified; C78.01 Secondary malignant neoplasm of right lung; R00.0 Tachycardia, unspecified; R06.82 Tachypnea, not elsewhere classified; Z87.891 Personal history of nicotine dependence
CPT/HCPCS: 90100; 92031; 95059